=== PATIENT | female | born 1945 | race American Indian/Alaskan Native ===

== ENCOUNTER 2017-02-17 11:10 | Outpatient (CLI) | payer MEDICARE ==
--- NOTE | 2017-02-17 11:54 | XRay Report ---
Chest 2 views: History: Shortness of breath. Findings: Normal cardiomediastinal silhouette. Trachea is midline. No consolidation, pneumothorax or pleural effusion. Impression: No acute cardiopulmonary findings.
--- NOTE | 2017-02-17 14:53 | Mammography Report ---
BILATERAL MAMMOGRAM with CAD: HISTORY:Cancer screening. Comparison study is dated February 26, 2016. FINDINGS: The breasts are almost entirely fat (<25% glandular). No mass, distortion, suspicious calcification, or skin change is seen. Stable bilateral calcifications which are radiographically benign are noted. IMPRESSION: Negative mammogram. There is no mammographic evidence of malignancy. RECOMMENDATION: Follow-up per ACS guidelines. BI-RADS CATEGORY: 1 = Negative ACR BI-RADS MAMMOGRAPHIC CODES: 0 = Needs additional imaging evaluation; 1 = Negative; 2 = Benign; 3 = Probably benign; 4 = Suspicious; 5 = Malignant; 6 = Known biopsy-proven malignancy COMMENT: 1. Dense breast tissue, i.e., adenosis, fibrocystic changes, etc., may obscure an underlying neoplasm. 2. Approximately 10% of cancers are not detected with mammography. 3. A negative mammography report should not delay biopsy if a clinically suspicious mass is present. COMMENT: Patient follow-up letters are generated in [id number].
== END 2017-02-17 11:11 | disposition home or self-care (01) ==
LOC: MAMMO 11:10
PROVIDERS: ATTEND Internal Medicine
DX: Z12.31 Encounter for screening mammogram for malignant neoplasm of breast (principal); R06.02 Shortness of breath
CPT/HCPCS: 71020; G0202; 77067

== ENCOUNTER 2018-02-20 08:46 | Outpatient (CLI) | payer MEDICARE ==
--- NOTE | 2018-02-20 09:15 | Mammography Report ---
BILATERAL MAMMOGRAM: FINDINGS: The breasts are almost entirely fat (<25% glandular). No mass, distortion, suspicious calcification, or skin change is seen. No significant changes when compared to exams dating back to February 2016. CAD was utilized. IMPRESSION: Negative mammogram. There is no mammographic evidence of malignancy. RECOMMENDATION: Follow-up per ACS guidelines. BI-RADS CATEGORY: 1 = Negative ACR BI-RADS MAMMOGRAPHIC CODES: 0 = Needs additional imaging evaluation; 1 = Negative; 2 = Benign; 3 = Probably benign; 4 = Suspicious; 5 = Malignant; 6 = Known biopsy-proven malignancy COMMENT: 1. Dense breast tissue, i.e., adenosis, fibrocystic changes, etc., may obscure an underlying neoplasm. 2. Approximately 10% of cancers are not detected with mammography. 3. A negative mammography report should not delay biopsy if a clinically suspicious mass is present. COMMENT: Patient follow-up letters are generated in [employer].
== END 2018-02-20 08:47 | disposition home or self-care (01) ==
LOC: MAMMO 08:46
PROVIDERS: ATTEND Internal Medicine
DX: Z12.31 Encounter for screening mammogram for malignant neoplasm of breast (principal)
CPT/HCPCS: 77067

== ENCOUNTER 2018-02-27 09:40 | Outpatient (CLI) | payer MEDICARE ==
--- NOTE | 2018-02-27 10:53 | Ultrasound Report ---
ULTRASOUND THYROID SCAN History: Disorder of thyroid, unspecified. Technique: Grayscale ultrasound with color Doppler interrogation. Findings: The right thyroid lobe is borderline enlarged measuring 5.4 x 1.7 x 1.6 cm. No right thyroid mass or cyst. The left thyroid lobe is normal size measuring 3.5 x 2.1 x 1.8 cm. A 2.5 x 1.5 x 1.3 cm slightly heterogeneous solid nodule is identified in the mid/posterior left thyroid lobe. No calcifications or cystic change. Trace flow on color Doppler. There is also a 1.2 x 1.1 cm hypoechoic cyst containing debris at the inferior pole of the left thyroid lobe. The isthmus is mildly thickened measuring 4 mm. A 1.4 x 0.6 x 1.2 cm well-circumscribed solid nodule is noted in the left side of the isthmus. Impression: 2 thyroid nodules and 1 thyroid cyst containing debris as outlined above.
== END 2018-02-27 09:41 | disposition home or self-care (01) ==
LOC: US 09:40
PROVIDERS: ATTEND Internal Medicine Critical Care Medicine
DX: E04.2 Nontoxic multinodular goiter (principal); E04.1 Nontoxic single thyroid nodule
CPT/HCPCS: 76536

== ENCOUNTER 2018-03-22 10:22 | Outpatient (CLI) | payer MEDICARE ==
--- NOTE | 2018-03-22 11:13 | Cat Scan Report ---
CT scan of chest without IV contrast: History: Interstitial pulmonary disease. Findings: No endobronchial or mediastinal mass. No mediastinal, hilar or axillary adenopathy. Minimal left pleural thickening. No pericardial effusion. Normal lung parenchyma. No discrete nodularity consolidation or mass. Incidentally noted 2.6 cm cyst left kidney. Impression: Pleural thickening left chest. No acute lung findings. No definite radiographic evidence of interstitial lung disease.
== END 2018-03-22 10:23 | disposition home or self-care (01) ==
LOC: CT 10:22
PROVIDERS: ATTEND Internal Medicine Critical Care Medicine
DX: J92.9 Pleural plaque without asbestos (principal)
CPT/HCPCS: 71250

== ENCOUNTER 2019-02-28 08:46 | Outpatient (CLI) | payer MEDICARE ==
--- NOTE | 2019-02-28 09:49 | Mammography Report ---
BILATERAL DIGITAL SCREENING MAMMOGRAM with CAD: 02/28/19 08:46:00 CLINICAL: Routine screening. COMPARISON:02/20/18 FINDINGS: The breasts are almost entirely fatty.Bilateral benign calcifications, some of which are arterial. No mass, architectural distortion or suspicious calcifications. IMPRESSION: No mammographic evidence of malignancy. BI-RADS CATEGORY: 2 -- Benign RECOMMENDATION: Routine mammographic screening in one year. COMMENT: Patient follow-up letters are generated by our [employer] application.
== END 2019-02-28 08:47 | disposition home or self-care (01) ==
LOC: MAMMO 08:46
PROVIDERS: ATTEND Internal Medicine
DX: Z12.31 Encounter for screening mammogram for malignant neoplasm of breast (principal); I10 Essential (primary) hypertension; K21.9 Gastro-esophageal reflux disease without esophagitis
CPT/HCPCS: 77067

== ENCOUNTER 2021-08-25 13:20 | Inpatient (IN) | payer MEDICARE ==
[2021-08-25 13:49] LABS: Bacteria,Urine 1+ /HPF (Negative); Bilirubin,Urine NEG (Negative); Blood,Urine MOD (Negative); Color,Urine Yellow (Yellow); Mucus,Urine FEW /HPF; Protein,Urine <15 mg/dL mg/dL (Negative); Urobilinogen,Urine < 2.0 mg/dL (<2.0); WBC,Urine < 1.0 /HPF (0.0-6.0)
--- NOTE | 2021-08-25 13:56 | Emergency Department Report ---
ED General Adult HPI - General Chief complaint: GI Bleed Stated complaint: CONSTIPATED/BLEEDING Time Seen by Provider: 08/25/21 13:40 Source: patient Mode of arrival: Wheelchair Limitations: No Limitations - History of Present Illness Initial comments: Patient is 76 years old female with history of hypertension and GERD. Patient presented to the ER complaining of left lower quadrant pain and left hip pain and constipation for the last 4 days. Patient stated that she has similar condition twice before and she went to an emergency room and did CT scan and blood work and she was told that everything was normal except for constipation. Patient reported today that she took milk of magnesia last night and she had to do a lot of straining this morning and she noticed that she has a bright red blood on the toilet paper. Patient denied any hematemesis, melena, hematuria or hemoptysis. Patient is not on any blood thinner medicine. Patient stated that last colonoscopy was 7 years ago and she was told that it was normal. - Related Data Home Medications Medication Instructions Recorded Confirmed Last Taken Colchicine [Colcrys] 0.6 mg PO DAILY PRN 04/08/15 08/25/21 Unknown Enalapril Maleate [Vasotec] 20 mg PO BID 04/08/15 08/25/21 Unknown Cholecalciferol Vit D3 5,000 units PO 3XW 08/25/21 08/25/21 Unknown Metoprolol 25 mg PO BID 08/25/21 08/25/21 Unknown NIFEdipine 60 mg PO BID 08/25/21 08/25/21 Unknown cloNIDine 0.1 mg PO QHS 08/25/21 08/25/21 Unknown Allergies Allergy/AdvReac Type Severity Reaction Status Date / Time Sulfa (Sulfonamide AdvReac Rash Verified 08/25/21 13:26 Antibiotics) ED Review of Systems ROS: Stated complaint: CONSTIPATED/BLEEDING Other details as noted in HPI Comment: All other systems reviewed and negative Constitutional: denies: chills, fever Respiratory: denies: cough, shortness of breath, SOB with exertion, SOB at rest Cardiovascular: denies: chest pain, palpitations Gastrointestinal: abdominal pain, hematochezia. denies: nausea, vomiting, diarrhea, constipation, hematemesis, melena Musculoskeletal: denies: back pain Neurological: denies: headache, weakness, numbness, paresthesias, confusion ED Past Medical Hx - Past Medical History Hx Hypertension: Yes Hx GERD: Yes - Medications Home Medications: Home Medications Medication Instructions Recorded Confirmed Last Taken Type Colchicine [Colcrys] 0.6 mg PO DAILY PRN 04/08/15 08/25/21 Unknown History Enalapril Maleate [Vasotec] 20 mg PO BID 04/08/15 08/25/21 Unknown History Cholecalciferol Vit D3 5,000 units PO 3XW 08/25/21 08/25/21 Unknown History Metoprolol 25 mg PO BID 08/25/21 08/25/21 Unknown History NIFEdipine 60 mg PO BID 08/25/21 08/25/21 Unknown History cloNIDine 0.1 mg PO QHS 08/25/21 08/25/21 Unknown History ED Physical Exam - General Limitations: No Limitations General appearance: alert, in no apparent distress - Head Head exam: Present: atraumatic, normocephalic, normal inspection - Eye Eye exam: Present: normal appearance, PERRL - ENT ENT exam: Present: normal exam, normal orophraynx, mucous membranes moist - Neck Neck exam: Present: normal inspection, full ROM. Absent: tenderness, meningismus - Respiratory Respiratory exam: Present: normal lung sounds bilaterally - Cardiovascular Cardiovascular Exam: Present: regular rate, normal rhythm, normal heart sounds - GI/Abdominal GI/Abdominal exam: Present: soft, normal bowel sounds. Absent: distended, tenderness, guarding, rebound, rigid, organomegaly, mass, bruit, pulsatile mass, hernia - Extremities Exam Extremities exam: Present: normal inspection, full ROM, normal capillary refill. Absent: pedal edema, calf tenderness - Back Exam Back exam: Present: normal inspection, full ROM. Absent: CVA tenderness (R), CVA tenderness (L) - Neurological Exam Neurological exam: Present: alert, oriented X3, CN II-XII intact - Psychiatric Psychiatric exam: Present: normal mood - Skin Skin exam: Present: warm, intact, normal color ED Course Vital Signs 08/25/21 08/25/21 08/25/21 13:40 14:12 15:00 Temperature 98.3 F Pulse Rate 80 65 63 Respiratory 20 12 20 Rate Blood Pressure 171/77 155/57 O2 Sat by Pulse 99 95 94 Oximetry 08/25/21 17:00 Temperature Pulse Rate 82 Respiratory 17 Rate Blood Pressure 198/77 O2 Sat by Pulse 95 Oximetry ED Medical Decision Making - Lab Data Result diagrams: 08/25/21 14:40 08/25/21 14:40 - Radiology Data Radiology results: report reviewed - Medical Decision Making Patient is 76 years old female with history of hypertension and GERD. Patient presented to the ER complaining of left lower quadrant pain and left hip pain and constipation for the last 4 days. Patient stated that she has similar condition twice before and she went to an emergency room and did CT scan and blood work and she was told that everything was normal except for constipation. Patient reported today that she took milk of magnesia last night and she had to do a lot of straining this morning and she noticed that she has a bright red blood on the toilet paper. Patient denied any hematemesis, melena, hematuria or hemoptysis. Patient is not on any blood thinner medicine. Patient stated that last colonoscopy was 7 years ago and she was told that it was normal. Labs reviewed and showed leukocytosis of 21,000. Patient given Zosyn. CT abdomen and pelvis with IV contrast showed nonspecific thickening of the anorectal area. Given patient presentation and leukocytosis is most likely infection. I discussed the patient with Dr. Lim, he agreed to admit the patient to the hospital for further management. Critical care attestation.: If time is entered above; I have spent that time in minutes in the direct care of this critically ill patient, excluding procedure time. ED Disposition Clinical Impression: Acute abdominal pain, Rectal abnormality Disposition: 02 [facility]ORT TERM [facility]OSPITAL Is pt being admited?: Yes Condition: Stable Forms: Accompanied Note
[2021-08-25] MEDS ORDERED: SODIUM CHLORIDE 0.9% 1000 ML 1,000 ML IV ONE (13:57)
[2021-08-25 15:05] LABS: Hematocrit 44.1 % (30.3-42.9); Hemoglobin 14.1 gm/dl (10.1-14.3); Mean Corpuscular HGB Conc 32 % (30-34); Mean Corpuscular Volume 88 fl (79-97); Platelet Count 365 K/mm3 (140-440); Red Blood Count 5.02 M/mm3 (3.65-5.03); Red Cell Distribution Width 14.9 % (13.2-15.2)
[2021-08-25] MEDS ORDERED: PIPERACILLIN/TAZOBACTAM 3.375 3.375 GM/50 ML BAG IV ONE (15:08)
[2021-08-25 15:13] LABS: Albumin 4.5 g/dL (3.9-5); Calcium 9.9 mg/dL (8.4-10.2); INR 0.9 (0.87-1.13)
[2021-08-25 15:14] LABS: Partial Thromboplastin Time 32.4 Sec. (24.2-36.6)
[2021-08-25 15:45] LABS: Total Cells Counted 100
[2021-08-25 15:46] LABS: Platelet Estimate Consistent w Auto; Toxic Granulation 2+; Toxic Vacuolation 1+
--- NOTE | 2021-08-25 17:15 | Cat Scan Report ---
CT ABDOMEN AND PELVIS WITH CONTRAST INDICATION / CLINICAL INFORMATION: abdominal pain, WBC 21101. TECHNIQUE: Axial CT images were obtained through the abdomen and pelvis after 100 mL Omnipaque [address] scans at this location are performed using CT dose reduction for ALARA by means of automated exposure control. COMPARISON: CT chest 03/22/2018 FINDINGS: LOWER CHEST: Bibasilar opacities favor atelectasis. Prominent extrapleural fat at left lung base. LIVER: No significant abnormality. GALLBLADDER: Cholelithiasis BILE DUCTS: No significant abnormality. PANCREAS: No significant abnormality. SPLEEN: No significant abnormality. ADRENALS: Right adrenal gland appears normal. The left adrenal gland appears to be next to the left n ephrectomy postsurgical changes. RIGHT KIDNEY / URETER: Tiny renal hypodensities are too small to characterize but likely represent cy sts. LEFT KIDNEY / URETER: Surgically absent STOMACH / SMALL BOWEL: No significant abnormality. COLON: Diverticulosis without acute inflammation. There is nonspecific thickening at the anorectal ju nction. APPENDIX: No significant abnormality. PERITONEUM: No free fluid. No free air. No fluid collection. LYMPH NODES: No significant adenopathy. AORTA / ARTERIES: Mild atherosclerotic calcification without acute abnormality. IVC / VEINS: No significant abnormality. URINARY BLADDER: No significant abnormality. REPRODUCTIVE ORGANS: Uterus is absent. No significant adnexal abnormality. ADDITIONAL FINDINGS: Postsurgical changes of the anterior abdominal wall. SKELETAL SYSTEM: Degenerative changes of the spine. No aggressive osseous lesion. IMPRESSION: 1. Nonspecific thickening at the anorectal junction. Recommend clinical correlation. 2. Colonic diverticulosis without evidence of acute inflammation. 3. Cholelithiasis without evidence of cholecystitis. 4. Status post left nephrectomy. Signer Name: Twin Grissom MD Signed: 08/25/2021 5:10 PM Workstation Name: [id number]
[2021-08-25 18:53] LABS: Alanine Aminotransferase 16 units/L (7-56); Albumin 4.4 g/dL (3.9-5); BUN/Creatinine Ratio 16; Blood Urea Nitrogen 21 mg/dL (7-17); Calcium 9.8 mg/dL (8.4-10.2); Hemolysis Index 12
[2021-08-25 18:56] LABS: Bilirubin,Direct < 0.2 mg/dL (0-0.2)
[2021-08-25] MEDS ORDERED: ACETAMINOPHEN 325 MG TAB PO PRN (23:33)
[2021-08-25] MEDS ORDERED: HYDROmorphone 1 MG/1 ML INJ IV PRN (23:33)
[2021-08-25] MEDS ORDERED: MORPHINE 2 MG/1 ML INJ IV PRN (23:33)
[2021-08-25] MEDS ORDERED: ONDANSETRON 4 MG/2 ML INJ IV PRN (23:33)
--- NOTE | 2021-08-25 23:38 | History and Physical Report ---
History of Present Illness Date of examination: 08/25/21 Date of admission: 08/25/21 17:45 Chief complaint: Left lower quadrant pain for 1 day Bright red blood per rectum X 1 episode History of present illness: 76-year-old -French female with history of hypertension, gout and vitamin D deficiency comes in for left lower quadrant and left inguinal pain for 4 days. Bright red blood per rectum x1 this morning. Patient states she was constipated and was straining to have a bowel movement when she had a bright red blood toilet paper. No hoa bleeding afterward. No hematemesis. No melena. No hematuria. Patient is not on any anticoagulants. In the emergency room well and was sent home. Patient was told that her CAT scans were normal. Patient's last colonoscopy was 7 years ago. Which was normal. In the CAT scan and was sent home. Patient continues to have pain which is intermittent and sharp. No exacerbating or precipitating factors. Pain is localized to the left groin and left lower quadrant. - Past Medical History --Hypertension: Yes --GERD: Yes -Past surgical history --not available -Family history -- Htn - Social history --Does not smoke and no alcohol - Medications Home Medications: Home Medications Medication Instructions Recorded Confirmed Last Taken Type Colchicine [Colcrys] 0.6 mg PO DAILY PRN 04/08/15 08/25/21 Unknown History Enalapril Maleate [Vasotec] 20 mg PO BID 04/08/15 08/25/21 Unknown History Cholecalciferol Vit D3 5,000 units PO 3XW 08/25/21 08/25/21 Unknown History Metoprolol 25 mg PO BID 08/25/21 08/25/21 Unknown History NIFEdipine 60 mg PO BID 08/25/21 08/25/21 Unknown History cloNIDine 0.1 mg PO QHS 08/25/21 08/25/21 Unknown History Review of Systems ROS: Stated complaint: CONSTIPATED/BLEEDING Other details as noted in HPI Comment: All other systems reviewed and negative Constitutional: denies: chills, fever Respiratory: denies: cough, shortness of breath, SOB with exertion, SOB at rest Cardiovascular: denies: chest pain, palpitations Gastrointestinal: abdominal pain, hematochezia. denies: nausea, vomiting, diarrhea, constipation, hematemesis, melena Musculoskeletal: denies: back pain Neurological: denies: headache, weakness, numbness, paresthesias, confusion Medications and Allergies Allergies Allergy/AdvReac Type Severity Reaction Status Date / Time Sulfa (Sulfonamide AdvReac Rash Verified 08/25/21 13:26 Antibiotics) Home Medications Medication Instructions Recorded Confirmed Last Taken Type Colchicine [Colcrys] 0.6 mg PO DAILY PRN 04/08/15 08/25/21 Unknown History Enalapril Maleate [Vasotec] 20 mg PO BID 04/08/15 08/25/21 Unknown History Cholecalciferol Vit D3 5,000 units PO 3XW 08/25/21 08/25/21 Unknown History Metoprolol 25 mg PO BID 08/25/21 08/25/21 Unknown History NIFEdipine 60 mg PO BID 08/25/21 08/25/21 Unknown History cloNIDine 0.1 mg PO QHS 08/25/21 08/25/21 Unknown History Exam - Constitutional Vitals: Temp Pulse Resp BP Pulse Ox 98.1 F 66 22 144/49 91 08/25/21 19:15 08/25/21 23:00 08/25/21 23:00 08/25/21 23:00 08/25/21 23:00 General appearance: Present: no acute distress, well-nourished - EENT Eyes: Present: PERRL ENT: hearing intact, clear oral mucosa - Neck Neck: Present: supple, normal ROM - Respiratory Respiratory effort: normal Respiratory: bilateral: CTA - Cardiovascular Heart rate: 78 Rhythm: regular Heart Sounds: Present: S1 & S2. Absent: rub, click - Extremities Extremities: no ischemia, pulses intact, pulses symmetrical, No edema Peripheral Pulses: within normal limits - Abdominal General gastrointestinal: Present: soft, tender (Tender in the left groin area. No palpable hernia.), normal bowel sounds Female genitourinary: Present: normal - Integumentary Integumentary: Present: clear, warm, dry - Musculoskeletal Musculoskeletal: gait normal, strength equal bilaterally - Psychiatric Psychiatric: appropriate mood/affect, intact judgment & insight - Neurologic Neurologic: CNII-XII intact, moves all extremities HEART Score - HEART Score History: Slightly suspicious Age: > 65 Risk factors: 1-2 risk factors Troponin: < normal limit - Critical Actions Critical Actions: 0-3 pts:0.9-1.7%risk of adverse cardiac event.Candidate for discharge Results - Labs CBC & Chem 7: 08/25/21 14:40 08/25/21 18:12 Labs: Laboratory Last Values WBC 21.6 K/mm3 (4.5-11.0) H 08/25/21 14:40 RBC 5.02 M/mm3 (3.65-5.03) 08/25/21 14:40 Hgb 14.1 gm/dl (10.1-14.3) 08/25/21 14:40 Hct 44.1 % (30.3-42.9) H 08/25/21 14:40 MCV 88 fl (79-97) 08/25/21 14:40 MCH 28 pg (28-32) 08/25/21 14:40 MCHC 32 % (30-34) 08/25/21 14:40 RDW 14.9 % (13.2-15.2) 08/25/21 14:40 Plt Count 365 K/mm3 (140-440) 08/25/21 14:40 Add Manual Diff Complete 08/25/21 14:40 Total Counted 100 08/25/21 14:40 Seg Neuts % (Manual) 92.0 % (40.0-70.0) H 08/25/21 14:40 Lymphocytes % (Manual) 5.0 % (13.4-35.0) L 08/25/21 14:40 Monocytes % (Manual) 3.0 % (0.0-7.3) 08/25/21 14:40 Nucleated RBC % Not Reportable 08/25/21 14:40 Seg Neutrophils # Man 19.9 K/mm3 (1.8-7.7) H 08/25/21 14:40 Band Neutrophils # 0.0 K/mm3 08/25/21 14:40 Lymphocytes # (Manual) 1.1 K/mm3 (1.2-5.4) L 08/25/21 14:40 Abs React Lymphs (Man) 0.0 K/mm3 08/25/21 14:40 Monocytes # (Manual) 0.6 K/mm3 (0.0-0.8) 08/25/21 14:40 Eosinophils # (Manual) 0.0 K/mm3 (0.0-0.4) 08/25/21 14:40 Basophils # (Manual) 0.0 K/mm3 (0.0-0.1) 08/25/21 14:40 Metamyelocytes # 0.0 K/mm3 08/25/21 14:40 Myelocytes # 0.0 K/mm3 08/25/21 14:40 Promyelocytes # 0.0 K/mm3 08/25/21 14:40 Blast Cells # 0.0 K/mm3 08/25/21 14:40 WBC Morphology Not Reportable 08/25/21 14:40 Hypersegmented Neuts Not Reportable 08/25/21 14:40 Hyposegmented Neuts Not Reportable 08/25/21 14:40 Hypogranular Neuts Not Reportable 08/25/21 14:40 Smudge Cells Not Reportable 08/25/21 14:40 Toxic Granulation 2+ 08/25/21 14:40 Toxic Vacuolation 1+ 08/25/21 14:40 Dohle Bodies Not Reportable 08/25/21 14:40 Pelger-Huet Anomaly Not Reportable 08/25/21 14:40 Hugo Rods Not Reportable 08/25/21 14:40 Platelet Estimate Consistent w auto 08/25/21 14:40 Clumped Platelets Not Reportable 08/25/21 14:40 Plt Clumps, EDTA Not Reportable 08/25/21 14:40 Large Platelets Not Reportable 08/25/21 14:40 Giant Platelets Not Reportable 08/25/21 14:40 Platelet Satelliting Not Reportable 08/25/21 14:40 Plt Morphology Comment Not Reportable 08/25/21 14:40 RBC Morphology Not Reportable 08/25/21 14:40 Dimorphic RBCs Not Reportable 08/25/21 14:40 Polychromasia Not Reportable 08/25/21 14:40 Hypochromasia Not Reportable 08/25/21 14:40 Poikilocytosis Not Reportable 08/25/21 14:40 Anisocytosis Not Reportable 08/25/21 14:40 Microcytosis Not Reportable 08/25/21 14:40 Macrocytosis Not Reportable 08/25/21 14:40 Spherocytes Not Reportable 08/25/21 14:40 Pappenheimer Bodies Not Reportable 08/25/21 14:40 Sickle Cells Not Reportable 08/25/21 14:40 Target Cells Not Reportable 08/25/21 14:40 Tear Drop Cells Not Reportable 08/25/21 14:40 Ovalocytes Not Reportable 08/25/21 14:40 Helmet Cells Not Reportable 08/25/21 14:40 [place] Bodies Not Reportable 08/25/21 14:40 [place] Rings Not Reportable 08/25/21 14:40 Juan Cells Not Reportable 08/25/21 14:40 Bite Cells Not Reportable 08/25/21 14:40 Crenated Cell Not Reportable 08/25/21 14:40 Elliptocytes Not Reportable 08/25/21 14:40 Acanthocytes (Spur) Not Reportable 08/25/21 14:40 Rouleaux Not Reportable 08/25/21 14:40 Hemoglobin C Crystals Not Reportable 08/25/21 14:40 Schistocytes Not Reportable 08/25/21 14:40 Malaria parasites Not Reportable 08/25/21 14:40 Randy Bodies Not Reportable 08/25/21 14:40 Hem Pathologist Commnt No 08/25/21 14:40 PT 13.2 Sec. (12.2-14.9) 08/25/21 14:40 INR 0.90 (0.87-1.13) 08/25/21 14:40 APTT 32.4 Sec. (24.2-36.6) 08/25/21 14:40 Sodium 139 mmol/L (137-145) 08/25/21 18:12 Potassium 4.6 mmol/L (3.6-5.0) 08/25/21 18:12 Chloride 101.9 mmol/L (98-107) 08/25/21 18:12 Carbon Dioxide 24 mmol/L (22-30) 08/25/21 18:12 Anion Gap 18 mmol/L 08/25/21 18:12 BUN 21 mg/dL (7-17) H 08/25/21 18:12 Creatinine 1.3 mg/dL (0.6-1.2) H 08/25/21 18:12 Estimated GFR 48 ml/min 08/25/21 18:12 BUN/Creatinine Ratio 16 % 08/25/21 18:12 Glucose 107 mg/dL (65-100) H 08/25/21 18:12 Calcium 9.8 mg/dL (8.4-10.2) 08/25/21 18:12 Total Bilirubin 0.40 mg/dL (0.1-1.2) 08/25/21 18:12 Direct Bilirubin < 0.2 mg/dL (0-0.2) 08/25/21 18:12 Indirect Bilirubin 0.2 mg/dL 08/25/21 18:12 AST 18 units/L (5-40) 08/25/21 18:12 ALT 16 units/L (7-56) 08/25/21 18:12 Alkaline Phosphatase 95 units/L (35-129) 08/25/21 18:12 Total Protein 7.7 g/dL (6.3-8.2) 08/25/21 18:12 Albumin 4.4 g/dL (3.9-5) 08/25/21 18:12 Albumin/Globulin Ratio 1.3 % 08/25/21 18:12 Urine Color Yellow (Yellow) 08/25/21 Unknown Urine Turbidity Clear (Clear) 08/25/21 Unknown Urine pH 5.0 (5.0-7.0) 08/25/21 Unknown Ur Specific Elsie 1.012 (1.003-1.030) 08/25/21 Unknown Urine Protein <15 mg/dl mg/dL (Negative) 08/25/21 Unknown Urine Glucose (UA) Neg mg/dL (Negative) 08/25/21 Unknown Urine Ketones Neg mg/dL (Negative) 08/25/21 Unknown Urine Blood Mod (Negative) 08/25/21 Unknown Urine Nitrite Neg (Negative) 08/25/21 Unknown Urine Bilirubin Neg (Negative) 08/25/21 Unknown Urine Urobilinogen < 2.0 mg/dL (<2.0) 08/25/21 Unknown Ur Leukocyte Esterase Neg (Negative) 08/25/21 Unknown Urine WBC (Auto) < 1.0 /HPF (0.0-6.0) 08/25/21 Unknown Urine RBC (Auto) 1.0 /HPF (0.0-6.0) 08/25/21 Unknown U Epithel Cells (Auto) 2.0 /HPF (0-13.0) 08/25/21 Unknown Urine Bacteria (Auto) 1+ /HPF (Negative) 08/25/21 Unknown Urine Mucus Few /HPF 08/25/21 Unknown Microbiology: Microbiology 08/25/21 18:12 Peripheral/Venous Blood Culture - Preliminary Culture in Progress 08/25/21 18:12 Peripheral/Venous Blood Culture - Preliminary Culture in Progress - Imaging and Cardiology Imaging and Cardiology: CT abdomen and pelvis Nonspecific thickening of the anorectal junction Recommend clinical correlation Colonic diverticulosis without evidence of acute inflammation Cholelithiasis without evidence of cholecystitis S/p left nephrectomy Assessment and Plan Advance Directives: Yes (Full code) VTE prophylaxis?: Chemical Plan of care discussed with patient/family: Yes - Patient Problems (1) Lower GI bleed Current Visit: Yes Status: Acute Plan to address problem: Serial hemoglobin and hematocrit GI consult requested Patient had some bleeding while straining No active bleeding now Transfuse if necessary Of note patient has nonspecific thickening in the anorectal junction Will defer to GI. Regarding the anorectal junction abnormality (2) Sepsis Current Visit: Yes Status: Acute Plan to address problem: Patient has a high white count of 21,000 Focus of infection unclear Urine is negative for infection Possible diverticulitis Patient started on IV Zosyn empirically. (3) ODALYS (acute kidney injury) Current Visit: Yes Status: Acute Plan to address problem: IV fluids for now and monitor creatinine levels (4) Hypertension Current Visit: Yes Status: Chronic Qualifiers: Hypertension type: primary hypertension Qualified Code(s): I10 - Essential (primary) hypertension Plan to address problem: Continue antihypertensives and adjust medications as necessary (5) DVT prophylaxis Current Visit: Yes Status: Acute Plan to address problem: On SCDs and GI prophylaxis
[2021-08-25] MEDS ORDERED: METOPROLOL TARTRATE 25 MG TAB PO SCH (23:45)
[2021-08-26] MEDS: NIFEdipine XL 60 MG TAB PO SCH ×3 (00:35→21:24)
[2021-08-26] MEDS: SODIUM CHLORIDE 0.9% 1000 ML 1,000 ML IV SCH ×2 (00:37→13:13)
[2021-08-26] MEDS: FAMOTIDINE 20 MG/2 ML INJ IV SCH ×3 (00:50→21:15)
[2021-08-26] MEDS: PIPERACIL/TAZOBACTA 4.5/NS 100 4.5 GM/100 ML VIAL IV SCH ×3 (02:05→19:46)
[2021-08-26] MEDS: LISINOPRIL 40 MG TAB PO SCH (10:23)
[2021-08-26] MEDS: METOPROLOL TARTRATE 25 MG TAB PO SCH ×2 (10:28→19:45)
--- NOTE | 2021-08-26 10:40 | Gastroenterology Consultation ---
History of Present Illness - Reason for Consult Consult date: 08/26/21 rectal bleeding Requesting physician: ARUNA LUO - History of Present Illness This is a 76 yo female with pmh of HTN, gout, and family hx of colon cancer with father admitted overnight for rectal bleeding and SIRS. She reports having left hip pain and has been on narcotic pain medication, which caused constipation. She has underlying chronic constipation. yesterday, she was having hard stool with straining and noticed bright red blood dripping from her rectum. No BM since then. No abdominal pain, nausea/vomiting, or melena. Last colonoscopy in 2012. CT scan showed diverticulosis without diverticulitis and nonspecific thickening in the anorectal junction. Colonoscopy with Dr. monterroso in 2013 showed left sided diverticulosis, internal hemorrhoids, and melanosis coli. Recommended for 5 year follow up colonoscopy. Medication list reviewed. Medications and Allergies Allergies Allergy/AdvReac Type Severity Reaction Status Date / Time Sulfa (Sulfonamide AdvReac Rash Verified 08/25/21 13:26 Antibiotics) Home Medications Medication Instructions Recorded Confirmed Last Taken Type Colchicine [Colcrys] 0.6 mg PO DAILY PRN 04/08/15 08/26/21 08/03/21 20:50 History Enalapril Maleate [Vasotec] 20 mg PO BID 04/08/15 08/26/21 08/24/21 20:30 History Cholecalciferol Vit D3 5,000 units PO 3XW 08/25/21 08/26/21 08/24/21 08:45 History Metoprolol 25 mg PO BID 08/25/21 08/26/21 08/24/21 08:45 History NIFEdipine 60 mg PO BID 08/25/21 08/26/21 08/24/21 08:45 History cloNIDine 0.1 mg PO QHS 08/25/21 08/25/21 Unknown History Active Meds: Active Medications Acetaminophen (Acetaminophen 325 Mg Tab) 650 mg PO Q4H PRN PRN Reason: Pain MILD(1-3)/Fever >100.5/DEUTSCH Famotidine (Famotidine 20 Mg/2 Ml Inj) 20 mg IV BID KATT Last Admin: 08/26/21 10:23 Dose: 20 mg Documented by: Hydromorphone HCl (Hydromorphone 1 Mg/1 Ml Inj) 0.5 mg IV Q3H PRN PRN Reason: Pain , Severe (7-10) Sodium Chloride (Nacl 0.9% 1000 Ml) 1,000 mls @ 75 mls/hr IV DIRECT [facility] Last Admin: 08/26/21 00:37 Dose: 75 mls/hr Documented by: Piperacillin Sod/Tazobactam Sod (Zosyn/Ns 4.5gm/100ml) 4.5 gm in 100 mls @ 200 mls/hr IV Q8H [facility]; Protocol Last Admin: 08/26/21 10:28 Dose: 200 mls/hr Documented by: Lisinopril (Lisinopril 40 Mg Tab) 40 mg PO QDAY [facility] Last Admin: 08/26/21 10:23 Dose: 40 mg Documented by: Metoprolol Tartrate (Metoprolol Tartrate 25 Mg Tab) 25 mg PO BID@0800,1700 [facility] Last Admin: 08/26/21 10:28 Dose: 25 mg Documented by: Morphine Sulfate (Morphine 2 Mg/1 Ml Inj) 2 mg IV Q4H PRN PRN Reason: Pain, Moderate (4-6) Last Admin: 08/26/21 03:18 Dose: 2 mg Documented by: Nifedipine (Nifedipine Xl 60 Mg Tab) 60 mg PO BID [facility] Last Admin: 08/26/21 10:23 Dose: 60 mg Documented by: Ondansetron HCl (Ondansetron 4 Mg/2 Ml Inj) 4 mg IV Q8H PRN PRN Reason: Nausea And Vomiting Sodium Chloride (Sodium Chloride 0.9% 10 Ml Flush Syringe) 10 ml IV BID [facility] Last Admin: 08/26/21 10:24 Dose: 10 ml Documented by: Sodium Chloride (Sodium Chloride 0.9% 10 Ml Flush Syringe) 10 ml IV PRN PRN PRN Reason: LINE FLUSH Review of Systems - Review of Systems All systems: negative Constitutional: no weight loss, no weight gain, no fever, no chills Cardiovascular: no chest pain Gastrointestinal: constipation, BRBPR, no abdominal pain, no nausea, no vomiting, no melena Musculoskeletal: joint pain Neurological: no weakness Endocrine: no cold intolerance Hematologic/Lymphatic: no easy bruising Allergic/Immunologic: no wheezing Exam - Constitutional Vital Signs: Temp Pulse Resp BP Pulse Ox 97.5 F L 72 18 148/70 96 08/26/21 07:59 08/26/21 07:57 08/26/21 07:59 08/26/21 07:57 08/26/21 07:57 General appearance: no acute distress - EENT Eyes: EOM intact ENT: hearing intact - Respiratory Respiratory effort: normal - Cardiovascular Rhythm: regular Heart Sounds: Present: S1 & S2 - Gastrointestinal General gastrointestinal: Present: soft, non-tender, non-distended, other Rectal Exam: normal exam-external/orifice, normal rectal tone, stool brown - Integumentary Integumentary: Present: clear, warm - Neurologic Neurological: alert and oriented x3 - Psychiatric Psychiatric: appropriate mood/affect - Labs CBC & Chem 7: 08/25/21 14:40 08/25/21 18:12 Lab Results: Laboratory Results - last 24 hr 08/25/21 08/25/21 08/25/21 14:40 14:40 14:40 WBC 21.6 H RBC 5.02 Hgb 14.1 Hct 44.1 H MCV 88 MCH 28 MCHC 32 RDW 14.9 Plt Count 365 Add Manual Diff Complete Total Counted 100 Seg Neuts % (Manual) 92.0 H Lymphocytes % (Manual) 5.0 L Monocytes % (Manual) 3.0 Nucleated RBC % Not Reportable Seg Neutrophils # Man 19.9 H Band Neutrophils # 0.0 Lymphocytes # (Manual) 1.1 L Abs React Lymphs (Man) 0.0 Monocytes # (Manual) 0.6 Eosinophils # (Manual) 0.0 Basophils # (Manual) 0.0 Metamyelocytes # 0.0 Myelocytes # 0.0 Promyelocytes # 0.0 Blast Cells # 0.0 WBC Morphology Not Reportable Hypersegmented Neuts Not Reportable Hyposegmented Neuts Not Reportable Hypogranular Neuts Not Reportable Smudge Cells Not Reportable Toxic Granulation 2+ Toxic Vacuolation 1+ Dohle Bodies Not Reportable Pelger-Huet Anomaly Not Reportable Hugo Rods Not Reportable Platelet Estimate Consistent w auto Clumped Platelets Not Reportable Plt Clumps, EDTA Not Reportable Large Platelets Not Reportable Giant Platelets Not Reportable Platelet Satelliting Not Reportable Plt Morphology Comment Not Reportable RBC Morphology Not Reportable Dimorphic RBCs Not Reportable Polychromasia Not Reportable Hypochromasia Not Reportable Poikilocytosis Not Reportable Anisocytosis Not Reportable Microcytosis Not Reportable Macrocytosis Not Reportable Spherocytes Not Reportable Pappenheimer Bodies Not Reportable Sickle Cells Not Reportable Target Cells Not Reportable Tear Drop Cells Not Reportable Ovalocytes Not Reportable Helmet Cells Not Reportable [place] Bodies Not Reportable [place] Rings Not Reportable Juan Cells Not Reportable Bite Cells Not Reportable Crenated Cell Not Reportable Elliptocytes Not Reportable Acanthocytes (Spur) Not Reportable Rouleaux Not Reportable Hemoglobin C Crystals Not Reportable Schistocytes Not Reportable Malaria parasites Not Reportable Randy Bodies Not Reportable Hem Pathologist Commnt No PT 13.2 INR 0.90 APTT 32.4 Sodium 138 Potassium 4.4 Chloride 102.8 Carbon Dioxide 22 Anion Gap 18 BUN 23 H Creatinine 1.4 H Estimated GFR 44 BUN/Creatinine Ratio 16 Glucose 107 H Calcium 9.9 Total Bilirubin 0.30 Direct Bilirubin Indirect Bilirubin AST 17 ALT 16 Alkaline Phosphatase 100 Total Protein 7.9 Albumin 4.5 Albumin/Globulin Ratio 1.3 Urine Color Urine Turbidity Urine pH Ur Specific [place] Urine Protein Urine Glucose (UA) Urine Ketones Urine Blood Urine Nitrite Urine Bilirubin Urine Urobilinogen Ur Leukocyte Esterase Urine WBC (Auto) Urine RBC (Auto) U Epithel Cells (Auto) Urine Bacteria (Auto) Urine Mucus 08/25/21 08/25/21 18:12 Unknown WBC RBC Hgb Hct MCV MCH MCHC RDW Plt Count Add Manual Diff Total Counted Seg Neuts % (Manual) Lymphocytes % (Manual) Monocytes % (Manual) Nucleated RBC % Seg Neutrophils # Man Band Neutrophils # Lymphocytes # (Manual) Abs React Lymphs (Man) Monocytes # (Manual) Eosinophils # (Manual) Basophils # (Manual) Metamyelocytes # Myelocytes # Promyelocytes # Blast Cells # WBC Morphology Hypersegmented Neuts Hyposegmented Neuts Hypogranular Neuts Smudge Cells Toxic Granulation Toxic Vacuolation Dohle Bodies Pelger-Huet Anomaly Hugo Rods Platelet Estimate Clumped Platelets Plt Clumps, EDTA Large Platelets Giant Platelets Platelet Satelliting Plt Morphology Comment RBC Morphology Dimorphic RBCs Polychromasia Hypochromasia Poikilocytosis Anisocytosis Microcytosis Macrocytosis Spherocytes Pappenheimer Bodies Sickle Cells Target Cells Tear Drop Cells Ovalocytes Helmet Cells [place] Bodies [place] Rings Juan Cells Bite Cells Crenated Cell Elliptocytes Acanthocytes (Spur) Rouleaux Hemoglobin C Crystals Schistocytes Malaria parasites Randy Bodies Hem Pathologist Commnt PT INR APTT Sodium 139 Potassium 4.6 Chloride 101.9 Carbon Dioxide 24 Anion Gap 18 BUN 21 H Creatinine 1.3 H Estimated GFR 48 BUN/Creatinine Ratio 16 Glucose 107 H Calcium 9.8 Total Bilirubin 0.40 Direct Bilirubin < 0.2 Indirect Bilirubin 0.2 AST 18 ALT 16 Alkaline Phosphatase 95 Total Protein 7.7 Albumin 4.4 Albumin/Globulin Ratio 1.3 Urine Color Yellow Urine Turbidity Clear Urine pH 5.0 Ur Specific [place] 1.012 Urine Protein <15 mg/dl Urine Glucose (UA) Neg Urine Ketones Neg Urine Blood Mod Urine Nitrite Neg Urine Bilirubin Neg Urine Urobilinogen < 2.0 Ur Leukocyte Esterase Neg Urine WBC (Auto) < 1.0 Urine RBC (Auto) 1.0 U Epithel Cells (Auto) 2.0 Urine Bacteria (Auto) 1+ Urine Mucus Few - Imaging CT Scan: report reviewed Assessment and Plan This is a 76 yo female with pmh of HTN, gout, and family hx of colon cancer with father admitted overnight for rectal bleeding and SIRS. # Rectal bleeding # Abnormal CT - CT scan showed diverticulosis without diverticulitis and nonspecific thickening in the anorectal junction. - Colonoscopy with Dr. monterroso in 2013 showed left sided diverticulosis, internal hemorrhoids, and melanosis coli. Recommended for 5 year follow up colonoscopy. - ddx for the CT finding of rectal wall thickening including colitis, internal hemorrhoids, vs malignancy. Rec - discussed options of colonoscopy either as inpatient vs outpatient. No signs of active bleeding at this time. Patient would like to have colonoscopy done inpatient. - patient currently on empiric antibiotics for sepsis without clear source of infection. - will plan for colonoscopy tomorrow - clear liquids today and NPO MN - Golytely prep. - Patient Problems (1) Lower GI bleed Current Visit: Yes Status: Acute (2) Rectal abnormality Current Visit: Yes Status: Acute
--- NOTE | 2021-08-26 10:40 | Progress Note ---
Assessment and Plan Assessment and plan: Hospital course to date 08/26: No active bleeding on encounter noted by patient. Patient only having issues with constipation. Vitals stable this morning. Follow-up recommendations of gastroenterology. Continue IV fluids and IV Zosyn. (1) Lower GI bleed Current Visit: Yes Status: Acute Plan to address problem: Serial hemoglobin and hematocrit, not actively bleeding at this time. No prior history of bleeding Transfuse as needed hemoglobin less than 7 Patient had some bleeding while straining and wiping, suspicion for hemorrhoids. Patient has a history of constipation. She is been using hydromorphone for hip pain which could have contributed to constipation. CT abdomen and pelvis demonstrates diverticuli and nonspecific thickening in the anorectal junction GI consult requested. Will differ to GI regarding the anorectal junction abnormality (2) Sepsis Current Visit: Yes Status: Acute Plan to address problem: Patient has a high white count of 21,000 on admission Focus of infection unclear Urine is negative for infection Possible diverticulitis Patient started on IV Zosyn empirically. (3) ODALYS (acute kidney injury) Current Visit: Yes Status: Acute Plan to address problem: IV fluids for now and monitor creatinine levels, some improvement on repeat labs (4) Hypertension Current Visit: Yes Status: Chronic Qualifiers: Hypertension type: primary hypertension Qualified Code(s): I10 - Essential (primary) hypertension Plan to address problem: Continue antihypertensives and adjust medications as necessary (5) DVT prophylaxis Current Visit: Yes Status: Acute Plan to address problem: On SCDs and GI prophylaxis History Interval history: Patient has no acute complaints this morning. He states that she has not had any blood per rectum since her initial episode prior to admission. She denies any nausea, vomiting, diarrhea, dizziness, chest pain, shortness of breath. She does state that she continues to have constipation. Remainder of ROS negative except for stated above Hospitalist Physical - Physical exam Narrative exam: Physical Exam: VITAL SIGNS: Reviewed. GENERAL: The patient appears normally developed, Vital signs as documented. Elevated BMI HEAD: No signs of head trauma. EYES: Pupils are equal. Extraocular motions intact. EARS: Hearing grossly intact. MOUTH: Oropharynx is normal. NECK: No adenopathy, no JVD. CHEST: Chest with clear breath sounds bilaterally. No wheezes, rales, or rhonchi. CARDIAC: Regular rate and rhythm. S1 and S2, without murmurs, gallops, or rubs. VASCULAR: No Edema. Peripheral pulses normal and equal in all extremities. ABDOMEN: Soft, non tender and non distended. No rebound or guarding, and no masses palpated. Bowel Sounds normal. MUSCULOSKELETAL: Good range of motion of all major joints. Extremities without clubbing, cyanosis or edema. Point tenderness at left hip NEUROLOGIC EXAM: Alert although orientation could not be verified as patient withdrawn no focal sensory or strength deficits. PSYCHIATRIC: Mood normal. SKIN: detail exam as documented in skin assessment - Constitutional Vitals: Temp Pulse Resp BP Pulse Ox 97.5 F L 72 18 148/70 96 08/26/21 07:59 08/26/21 07:57 08/26/21 07:59 08/26/21 07:57 08/26/21 07:57 General appearance: Present: no acute distress, well-nourished HEART Score - HEART Score Age: > 65 Risk factors: 1-2 risk factors Troponin: < normal limit - Critical Actions Critical Actions: 0-3 pts:0.9-1.7%risk of adverse cardiac event.Candidate for discharge Results - Labs CBC & Chem 7: 08/25/21 14:40 08/25/21 18:12 Labs: Laboratory Last Values WBC 21.6 K/mm3 (4.5-11.0) H 08/25/21 14:40 RBC 5.02 M/mm3 (3.65-5.03) 08/25/21 14:40 Hgb 14.1 gm/dl (10.1-14.3) 08/25/21 14:40 Hct 44.1 % (30.3-42.9) H 08/25/21 14:40 MCV 88 fl (79-97) 08/25/21 14:40 MCH 28 pg (28-32) 08/25/21 14:40 MCHC 32 % (30-34) 08/25/21 14:40 RDW 14.9 % (13.2-15.2) 08/25/21 14:40 Plt Count 365 K/mm3 (140-440) 08/25/21 14:40 Add Manual Diff Complete 08/25/21 14:40 Total Counted 100 08/25/21 14:40 Seg Neuts % (Manual) 92.0 % (40.0-70.0) H 08/25/21 14:40 Lymphocytes % (Manual) 5.0 % (13.4-35.0) L 08/25/21 14:40 Monocytes % (Manual) 3.0 % (0.0-7.3) 08/25/21 14:40 Nucleated RBC % Not Reportable 08/25/21 14:40 Seg Neutrophils # Man 19.9 K/mm3 (1.8-7.7) H 08/25/21 14:40 Band Neutrophils # 0.0 K/mm3 08/25/21 14:40 Lymphocytes # (Manual) 1.1 K/mm3 (1.2-5.4) L 08/25/21 14:40 Abs React Lymphs (Man) 0.0 K/mm3 08/25/21 14:40 Monocytes # (Manual) 0.6 K/mm3 (0.0-0.8) 08/25/21 14:40 Eosinophils # (Manual) 0.0 K/mm3 (0.0-0.4) 08/25/21 14:40 Basophils # (Manual) 0.0 K/mm3 (0.0-0.1) 08/25/21 14:40 Metamyelocytes # 0.0 K/mm3 08/25/21 14:40 Myelocytes # 0.0 K/mm3 08/25/21 14:40 Promyelocytes # 0.0 K/mm3 08/25/21 14:40 Blast Cells # 0.0 K/mm3 08/25/21 14:40 WBC Morphology Not Reportable 08/25/21 14:40 Hypersegmented Neuts Not Reportable 08/25/21 14:40 Hyposegmented Neuts Not Reportable 08/25/21 14:40 Hypogranular Neuts Not Reportable 08/25/21 14:40 Smudge Cells Not Reportable 08/25/21 14:40 Toxic Granulation 2+ 08/25/21 14:40 Toxic Vacuolation 1+ 08/25/21 14:40 Dohle Bodies Not Reportable 08/25/21 14:40 Pelger-Huet Anomaly Not Reportable 08/25/21 14:40 Hugo Rods Not Reportable 08/25/21 14:40 Platelet Estimate Consistent w auto 08/25/21 14:40 Clumped Platelets Not Reportable 08/25/21 14:40 Plt Clumps, EDTA Not Reportable 08/25/21 14:40 Large Platelets Not Reportable 08/25/21 14:40 Giant Platelets Not Reportable 08/25/21 14:40 Platelet Satelliting Not Reportable 08/25/21 14:40 Plt Morphology Comment Not Reportable 08/25/21 14:40 RBC Morphology Not Reportable 08/25/21 14:40 Dimorphic RBCs Not Reportable 08/25/21 14:40 Polychromasia Not Reportable 08/25/21 14:40 Hypochromasia Not Reportable 08/25/21 14:40 Poikilocytosis Not Reportable 08/25/21 14:40 Anisocytosis Not Reportable 08/25/21 14:40 Microcytosis Not Reportable 08/25/21 14:40 Macrocytosis Not Reportable 08/25/21 14:40 Spherocytes Not Reportable 08/25/21 14:40 Pappenheimer Bodies Not Reportable 08/25/21 14:40 Sickle Cells Not Reportable 08/25/21 14:40 Target Cells Not Reportable 08/25/21 14:40 Tear Drop Cells Not Reportable 08/25/21 14:40 Ovalocytes Not Reportable 08/25/21 14:40 Helmet Cells Not Reportable 08/25/21 14:40 [place] Bodies Not Reportable 08/25/21 14:40 [place] Rings Not Reportable 08/25/21 14:40 Juan Cells Not Reportable 08/25/21 14:40 Bite Cells Not Reportable 08/25/21 14:40 Crenated Cell Not Reportable 08/25/21 14:40 Elliptocytes Not Reportable 08/25/21 14:40 Acanthocytes (Spur) Not Reportable 08/25/21 14:40 Rouleaux Not Reportable 08/25/21 14:40 Hemoglobin C Crystals Not Reportable 08/25/21 14:40 Schistocytes Not Reportable 08/25/21 14:40 Malaria parasites Not Reportable 08/25/21 14:40 Randy Bodies Not Reportable 08/25/21 14:40 Hem Pathologist Commnt No 08/25/21 14:40 PT 13.2 Sec. (12.2-14.9) 08/25/21 14:40 INR 0.90 (0.87-1.13) 08/25/21 14:40 APTT 32.4 Sec. (24.2-36.6) 08/25/21 14:40 Sodium 139 mmol/L (137-145) 08/25/21 18:12 Potassium 4.6 mmol/L (3.6-5.0) 08/25/21 18:12 Chloride 101.9 mmol/L (98-107) 08/25/21 18:12 Carbon Dioxide 24 mmol/L (22-30) 08/25/21 18:12 Anion Gap 18 mmol/L 08/25/21 18:12 BUN 21 mg/dL (7-17) H 08/25/21 18:12 Creatinine 1.3 mg/dL (0.6-1.2) H 08/25/21 18:12 Estimated GFR 48 ml/min 08/25/21 18:12 BUN/Creatinine Ratio 16 % 08/25/21 18:12 Glucose 107 mg/dL (65-100) H 08/25/21 18:12 Calcium 9.8 mg/dL (8.4-10.2) 08/25/21 18:12 Total Bilirubin 0.40 mg/dL (0.1-1.2) 08/25/21 18:12 Direct Bilirubin < 0.2 mg/dL (0-0.2) 08/25/21 18:12 Indirect Bilirubin 0.2 mg/dL 08/25/21 18:12 AST 18 units/L (5-40) 08/25/21 18:12 ALT 16 units/L (7-56) 08/25/21 18:12 Alkaline Phosphatase 95 units/L (35-129) 08/25/21 18:12 Total Protein 7.7 g/dL (6.3-8.2) 08/25/21 18:12 Albumin 4.4 g/dL (3.9-5) 08/25/21 18:12 Albumin/Globulin Ratio 1.3 % 08/25/21 18:12 Urine Color Yellow (Yellow) 08/25/21 Unknown Urine Turbidity Clear (Clear) 08/25/21 Unknown Urine pH 5.0 (5.0-7.0) 08/25/21 Unknown Ur Specific [place] 1.012 (1.003-1.030) 08/25/21 Unknown Urine Protein <15 mg/dl mg/dL (Negative) 08/25/21 Unknown Urine Glucose (UA) Neg mg/dL (Negative) 08/25/21 Unknown Urine Ketones Neg mg/dL (Negative) 08/25/21 Unknown Urine Blood Mod (Negative) 08/25/21 Unknown Urine Nitrite Neg (Negative) 08/25/21 Unknown Urine Bilirubin Neg (Negative) 08/25/21 Unknown Urine Urobilinogen < 2.0 mg/dL (<2.0) 08/25/21 Unknown Ur Leukocyte Esterase Neg (Negative) 08/25/21 Unknown Urine WBC (Auto) < 1.0 /HPF (0.0-6.0) 08/25/21 Unknown Urine RBC (Auto) 1.0 /HPF (0.0-6.0) 08/25/21 Unknown U Epithel Cells (Auto) 2.0 /HPF (0-13.0) 08/25/21 Unknown Urine Bacteria (Auto) 1+ /HPF (Negative) 08/25/21 Unknown Urine Mucus Few /HPF 08/25/21 Unknown Microbiology: Microbiology 08/25/21 18:12 Peripheral/Venous Blood Culture - Preliminary Culture in Progress 08/25/21 18:12 Peripheral/Venous Blood Culture - Preliminary Culture in Progress Jaramillo/IV: Voiding Method Toilet Active Medications - Current Medications Current Medications: Generic Name Dose Route Start Last Admin Trade Name Freq PRN Reason Stop Dose Admin Acetaminophen 650 mg 08/25/21 23:33 Acetaminophen 325 Mg Tab PO Q4H PRN Pain MILD(1-3)/Fever >100.5/DEUTSCH Famotidine 20 mg 08/25/21 23:45 08/26/21 10:23 Famotidine 20 Mg/2 Ml Inj IV 20 mg BID KATT Administration Hydromorphone HCl 0.5 mg 08/25/21 23:33 Hydromorphone 1 Mg/1 Ml Inj IV Q3H PRN Pain , Severe (7-10) Sodium Chloride 1,000 mls @ 75 mls/hr 08/25/21 23:45 08/26/21 00:37 Nacl 0.9% 1000 Ml IV 75 mls/hr DIRECT KATT Administration Piperacillin Sod/Tazobactam Sod 4.5 gm in 100 mls @ 200 mls/hr 08/26/21 00:00 08/26/21 10:28 Zosyn/Ns 4.5gm/100ml IV 200 mls/hr Q8H KATT Administration Protocol Lisinopril 40 mg 08/26/21 10:00 08/26/21 10:23 Lisinopril 40 Mg Tab PO 40 mg QDAY KATT Administration Metoprolol Tartrate 25 mg 08/26/21 08:00 08/26/21 10:28 Metoprolol Tartrate 25 Mg Tab PO 25 mg BID@0800,1700 KATT Administration Morphine Sulfate 2 mg 08/25/21 23:33 08/26/21 03:18 Morphine 2 Mg/1 Ml Inj IV 2 mg Q4H PRN Administration Pain, Moderate (4-6) Nifedipine 60 mg 08/25/21 23:45 08/26/21 10:23 Nifedipine Xl 60 Mg Tab PO 60 mg BID KATT Administration Ondansetron HCl 4 mg 08/25/21 23:33 Ondansetron 4 Mg/2 Ml Inj IV Q8H PRN Nausea And Vomiting Sodium Chloride 10 ml 08/25/21 23:45 08/26/21 10:24 Sodium Chloride 0.9% 10 Ml Flush Syringe IV 10 ml BID KATT Administration Sodium Chloride 10 ml 08/25/21 23:33 Sodium Chloride 0.9% 10 Ml Flush Syringe IV PRN PRN LINE FLUSH
--- NOTE | 2021-08-26 10:50 | Consultation ---
History of Present Illness Consult date: 08/26/21 Reason for consult: abdominal pain - History of present illness History of present illness: 76 yo female c/o pain of her left hip bone at the anterior superior iliac spine. No nausea or vomiting. Past History Past Medical History: hypertension Medications and Allergies Allergies Allergy/AdvReac Type Severity Reaction Status Date / Time Sulfa (Sulfonamide AdvReac Rash Verified 08/25/21 13:26 Antibiotics) Home Medications Medication Instructions Recorded Confirmed Last Taken Type Colchicine [Colcrys] 0.6 mg PO DAILY PRN 04/08/15 08/26/21 08/03/21 20:50 History Enalapril Maleate [Vasotec] 20 mg PO BID 04/08/15 08/26/21 08/24/21 20:30 History Cholecalciferol Vit D3 5,000 units PO 3XW 08/25/21 08/26/21 08/24/21 08:45 History Metoprolol 25 mg PO BID 08/25/21 08/26/21 08/24/21 08:45 History NIFEdipine 60 mg PO BID 08/25/21 08/26/21 08/24/21 08:45 History cloNIDine 0.1 mg PO QHS 08/25/21 08/25/21 Unknown History Active Meds: Active Medications Acetaminophen (Acetaminophen 325 Mg Tab) 650 mg PO Q4H PRN PRN Reason: Pain MILD(1-3)/Fever >100.5/DEUTSCH Famotidine (Famotidine 20 Mg/2 Ml Inj) 20 mg IV BID KATT Last Admin: 08/26/21 10:23 Dose: 20 mg Documented by: Hydromorphone HCl (Hydromorphone 1 Mg/1 Ml Inj) 0.5 mg IV Q3H PRN PRN Reason: Pain , Severe (7-10) Sodium Chloride (Nacl 0.9% 1000 Ml) 1,000 mls @ 75 mls/hr IV DIRECT KATT Last Admin: 08/26/21 00:37 Dose: 75 mls/hr Documented by: Piperacillin Sod/Tazobactam Sod (Zosyn/Ns 4.5gm/100ml) 4.5 gm in 100 mls @ 200 mls/hr IV Q8H KATT; Protocol Last Admin: 08/26/21 10:28 Dose: 200 mls/hr Documented by: Lisinopril (Lisinopril 40 Mg Tab) 40 mg PO QDAY [facility] Last Admin: 08/26/21 10:23 Dose: 40 mg Documented by: Metoprolol Tartrate (Metoprolol Tartrate 25 Mg Tab) 25 mg PO BID@0800,1700 [facility] Last Admin: 08/26/21 10:28 Dose: 25 mg Documented by: Morphine Sulfate (Morphine 2 Mg/1 Ml Inj) 2 mg IV Q4H PRN PRN Reason: Pain, Moderate (4-6) Last Admin: 08/26/21 03:18 Dose: 2 mg Documented by: Nifedipine (Nifedipine Xl 60 Mg Tab) 60 mg PO BID [facility] Last Admin: 08/26/21 10:23 Dose: 60 mg Documented by: Ondansetron HCl (Ondansetron 4 Mg/2 Ml Inj) 4 mg IV Q8H PRN PRN Reason: Nausea And Vomiting Polyethylene Glycol/Electrolytes (Polyethylene Glycol/Elect Soln 4000 Ml) 4,000 ml PO ONCE ONE Stop: 08/26/21 11:31 Sodium Chloride (Sodium Chloride 0.9% 10 Ml Flush Syringe) 10 ml IV BID [facility] Last Admin: 08/26/21 10:24 Dose: 10 ml Documented by: Sodium Chloride (Sodium Chloride 0.9% 10 Ml Flush Syringe) 10 ml IV PRN PRN PRN Reason: LINE FLUSH Review of Systems All systems: negative (none) Exam Vital Signs Temp Pulse Resp BP Pulse Ox 98.3 F 80 20 171/77 99 08/25/21 13:40 08/25/21 13:40 08/25/21 13:40 08/25/21 13:40 08/25/21 13:40 - General physical appearance Positive: well developed, well nourished, no distress - Eyes Positive: PERRL, normal occular movement - ENT Positive: normal pinna, normal nares, normal mucosa, no hearing loss, no congestion - Neck Positive: no masses, no bruits, trachea midline, no venous distension - Respiratory Positive: normal expansion, normal respiratory effort, clear to auscultation - Cardiovascular Rhythm: regular Heart Sounds: Present: S1 & S2. Absent: rub, click - Extremities Extremities: no ischemia, pulses symmetrical, No edema - Breasts Breasts: normal, no mass, no skin changes - Abdomen Abdomen: Present: soft, bowel sounds normal, other (No ventral or groin hernias. Pt is TTP at the anterior superior iliac spine.). Absent: tender, distended Hernia: none - Genitourinary Male Genitourinary: normal Female Genitourinary: normal - Integumentary no rash, no growths, no abnormal pigmentation - Neurologic Neurologic: alert and oriented to time, place and person, motor strength and sensation are grossly intact - Musculoskeletal normal gait, normal posture - Psychiatric Psychiatric: appropriate mood/affect, intact judgment & insight Results - Labs 08/25/21 14:40 08/25/21 18:12 Abnormal lab results 08/25/21 08/25/21 08/25/21 Range/Units 14:40 14:40 18:12 WBC 21.6 H (4.5-11.0) K/mm3 Hct 44.1 H (30.3-42.9) % Seg Neuts % (Manual) 92.0 H (40.0-70.0) % Lymphocytes % (Manual) 5.0 L (13.4-35.0) % Seg Neutrophils # Man 19.9 H (1.8-7.7) K/mm3 Lymphocytes # (Manual) 1.1 L (1.2-5.4) K/mm3 BUN 23 H 21 H (7-17) mg/dL Creatinine 1.4 H 1.3 H (0.6-1.2) mg/dL Glucose 107 H 107 H (65-100) mg/dL Diabetes panel 08/25/21 08/25/21 Range/Units 14:40 18:12 Sodium 138 139 (137-145) mmol/L Potassium 4.4 4.6 (3.6-5.0) mmol/L Chloride 102.8 101.9 (98-107) mmol/L Carbon Dioxide 22 24 (22-30) mmol/L BUN 23 H 21 H (7-17) mg/dL Creatinine 1.4 H 1.3 H (0.6-1.2) mg/dL Glucose 107 H 107 H (65-100) mg/dL Calcium 9.9 9.8 (8.4-10.2) mg/dL AST 17 18 (5-40) units/L ALT 16 16 (7-56) units/L Alkaline Phosphatase 100 95 (35-129) units/L Total Protein 7.9 7.7 (6.3-8.2) g/dL Albumin 4.5 4.4 (3.9-5) g/dL Calcium panel 08/25/21 08/25/21 Range/Units 14:40 18:12 Calcium 9.9 9.8 (8.4-10.2) mg/dL Albumin 4.5 4.4 (3.9-5) g/dL Pituitary panel 08/25/21 08/25/21 Range/Units 14:40 18:12 Sodium 138 139 (137-145) mmol/L Potassium 4.4 4.6 (3.6-5.0) mmol/L Chloride 102.8 101.9 (98-107) mmol/L Carbon Dioxide 22 24 (22-30) mmol/L BUN 23 H 21 H (7-17) mg/dL Creatinine 1.4 H 1.3 H (0.6-1.2) mg/dL Glucose 107 H 107 H (65-100) mg/dL Calcium 9.9 9.8 (8.4-10.2) mg/dL Adrenal panel 08/25/21 08/25/21 Range/Units 14:40 18:12 Sodium 138 139 (137-145) mmol/L Potassium 4.4 4.6 (3.6-5.0) mmol/L Chloride 102.8 101.9 (98-107) mmol/L Carbon Dioxide 22 24 (22-30) mmol/L BUN 23 H 21 H (7-17) mg/dL Creatinine 1.4 H 1.3 H (0.6-1.2) mg/dL Glucose 107 H 107 H (65-100) mg/dL Calcium 9.9 9.8 (8.4-10.2) mg/dL Total Bilirubin 0.30 0.40 (0.1-1.2) mg/dL AST 17 18 (5-40) units/L ALT 16 16 (7-56) units/L Alkaline Phosphatase 100 95 (35-129) units/L Total Protein 7.9 7.7 (6.3-8.2) g/dL Albumin 4.5 4.4 (3.9-5) g/dL - Imaging CT scan - abdomen: report reviewed CT scan - pelvis: report reviewed Assessment and Plan - Patient Problems (1) Left lower quadrant pain Current Visit: Yes Status: Acute Plan to address problem: 1) Pt does not have a hernia or any other significant surgical abnormality. 2) I will sign off.
[2021-08-26] MEDS ORDERED: POLYETHYLENE GLYCOL/ELECT SOLN 4000 ML PO ONE (11:30)
[2021-08-27] MEDS: SODIUM CHLORIDE 0.9% 1000 ML 1,000 ML IV SCH (00:01)
[2021-08-27] MEDS: PIPERACIL/TAZOBACTA 4.5/NS 100 4.5 GM/100 ML VIAL IV SCH ×3 (00:01→16:41)
[2021-08-27] MEDS ORDERED: LIDOCAINE MPF (2%) 20 MG/1 ML VIAL 5 ML ONE ×2 (07:00→13:30)
[2021-08-27] MEDS ORDERED: hydrALAZINE 20 MG/1 ML INJ ONE (07:00)
[2021-08-27] MEDS ORDERED: hydrALAZINE 20 MG/1 ML INJ IV PRN (09:37)
[2021-08-27] MEDS: LISINOPRIL 40 MG TAB PO SCH (09:51)
[2021-08-27] MEDS: FAMOTIDINE 20 MG/2 ML INJ IV SCH ×2 (09:51→21:43)
[2021-08-27] MEDS: METOPROLOL TARTRATE 25 MG TAB PO SCH ×2 (09:51→16:40)
[2021-08-27] MEDS: NIFEdipine XL 60 MG TAB PO SCH ×2 (09:51→21:43)
[2021-08-27 09:59] LABS: Hematocrit 41.6 % (30.3-42.9); Mean Corpuscular HGB Conc 31 % (30-34); Mean Corpuscular Volume 89 fl (79-97); Platelet Count 328 K/mm3 (140-440); Red Blood Count 4.69 M/mm3 (3.65-5.03); Red Cell Distribution Width 15.1 % (13.2-15.2)
--- NOTE | 2021-08-27 10:40 | Progress Note ---
Assessment and Plan Assessment and plan: Hospital course to date 08/26: No active bleeding on encounter noted by patient. Patient only having issues with constipation. Vitals stable this morning. Follow-up recommendations of gastroenterology. Continue IV fluids and IV Zosyn. 08/27: Patient will go for colonoscopy today with GI. (1) Lower GI bleed Current Visit: Yes Status: Acute Plan to address problem: Serial hemoglobin and hematocrit, not actively bleeding at this time. No prior history of bleeding Transfuse as needed hemoglobin less than 7 Patient had some bleeding while straining and wiping, suspicion for hemorrhoids. Patient has a history of constipation. She is been using hydromorphone for hip pain which could have contributed to constipation. CT abdomen and pelvis demonstrates diverticuli and nonspecific thickening in the anorectal junction GI consult requested. Will differ to GI regarding the anorectal junction abnormality (2) Sepsis Current Visit: Yes Status: Acute Plan to address problem: Patient has a high white count of 21,000 on admission Focus of infection unclear Urine is negative for infection Possible diverticulitis Patient started on IV Zosyn empirically. (3) ODALYS (acute kidney injury) Current Visit: Yes Status: Acute Plan to address problem: IV fluids for now and monitor creatinine levels, some improvement on repeat labs (4) Hypertension Current Visit: Yes Status: Chronic Qualifiers: Hypertension type: primary hypertension Qualified Code(s): I10 - Essential (primary) hypertension Plan to address problem: Continue antihypertensives and adjust medications as necessary (5) DVT prophylaxis Current Visit: Yes Status: Acute Plan to address problem: On SCDs and GI prophylaxis History Interval history: Patient has no acute complaints this morning. Hospitalist Physical - Physical exam Narrative exam: Physical Exam: VITAL SIGNS: Reviewed. GENERAL: The patient appears normally developed, Vital signs as documented. Elevated BMI HEAD: No signs of head trauma. EYES: Pupils are equal. Extraocular motions intact. EARS: Hearing grossly intact. MOUTH: Oropharynx is normal. NECK: No adenopathy, no JVD. CHEST: Chest with clear breath sounds bilaterally. No wheezes, rales, or rhonchi. CARDIAC: Regular rate and rhythm. S1 and S2, without murmurs, gallops, or rubs. VASCULAR: No Edema. Peripheral pulses normal and equal in all extremities. ABDOMEN: Soft, non tender and non distended. No rebound or guarding, and no masses palpated. Bowel Sounds normal. MUSCULOSKELETAL: Good range of motion of all major joints. Extremities without clubbing, cyanosis or edema. Point tenderness at left hip NEUROLOGIC EXAM: Alert although orientation could not be verified as patient withdrawn no focal sensory or strength deficits. PSYCHIATRIC: Mood normal. SKIN: detail exam as documented in skin assessment - Constitutional Vitals: Temp Pulse Resp BP Pulse Ox 97.6 F 70 18 178/67 96 08/27/21 07:35 08/27/21 09:51 08/27/21 07:35 08/27/21 09:51 08/27/21 09:00 General appearance: Present: no acute distress, well-nourished HEART Score - HEART Score Age: > 65 Risk factors: 1-2 risk factors Troponin: < normal limit - Critical Actions Critical Actions: 0-3 pts:0.9-1.7%risk of adverse cardiac event.Candidate for discharge Results - Labs CBC & Chem 7: 08/27/21 08:54 08/25/21 18:12 Labs: Laboratory Last Values WBC 11.3 K/mm3 (4.5-11.0) H 08/27/21 08:54 RBC 4.69 M/mm3 (3.65-5.03) 08/27/21 08:54 Hgb 13.0 gm/dl (10.1-14.3) 08/27/21 08:54 Hct 41.6 % (30.3-42.9) 08/27/21 08:54 MCV 89 fl (79-97) 08/27/21 08:54 MCH 28 pg (28-32) 08/27/21 08:54 MCHC 31 % (30-34) 08/27/21 08:54 RDW 15.1 % (13.2-15.2) 08/27/21 08:54 Plt Count 328 K/mm3 (140-440) 08/27/21 08:54 Add Manual Diff Complete 08/25/21 14:40 Total Counted 100 08/25/21 14:40 Seg Neuts % (Manual) 92.0 % (40.0-70.0) H 08/25/21 14:40 Lymphocytes % (Manual) 5.0 % (13.4-35.0) L 08/25/21 14:40 Monocytes % (Manual) 3.0 % (0.0-7.3) 08/25/21 14:40 Nucleated RBC % Not Reportable 08/25/21 14:40 Seg Neutrophils # Man 19.9 K/mm3 (1.8-7.7) H 08/25/21 14:40 Band Neutrophils # 0.0 K/mm3 08/25/21 14:40 Lymphocytes # (Manual) 1.1 K/mm3 (1.2-5.4) L 08/25/21 14:40 Abs React Lymphs (Man) 0.0 K/mm3 08/25/21 14:40 Monocytes # (Manual) 0.6 K/mm3 (0.0-0.8) 08/25/21 14:40 Eosinophils # (Manual) 0.0 K/mm3 (0.0-0.4) 08/25/21 14:40 Basophils # (Manual) 0.0 K/mm3 (0.0-0.1) 08/25/21 14:40 Metamyelocytes # 0.0 K/mm3 08/25/21 14:40 Myelocytes # 0.0 K/mm3 08/25/21 14:40 Promyelocytes # 0.0 K/mm3 08/25/21 14:40 Blast Cells # 0.0 K/mm3 08/25/21 14:40 WBC Morphology Not Reportable 08/25/21 14:40 Hypersegmented Neuts Not Reportable 08/25/21 14:40 Hyposegmented Neuts Not Reportable 08/25/21 14:40 Hypogranular Neuts Not Reportable 08/25/21 14:40 Smudge Cells Not Reportable 08/25/21 14:40 Toxic Granulation 2+ 08/25/21 14:40 Toxic Vacuolation 1+ 08/25/21 14:40 Dohle Bodies Not Reportable 08/25/21 14:40 Pelger-Huet Anomaly Not Reportable 08/25/21 14:40 Hugo Rods Not Reportable 08/25/21 14:40 Platelet Estimate Consistent w auto 08/25/21 14:40 Clumped Platelets Not Reportable 08/25/21 14:40 Plt Clumps, EDTA Not Reportable 08/25/21 14:40 Large Platelets Not Reportable 08/25/21 14:40 Giant Platelets Not Reportable 08/25/21 14:40 Platelet Satelliting Not Reportable 08/25/21 14:40 Plt Morphology Comment Not Reportable 08/25/21 14:40 RBC Morphology Not Reportable 08/25/21 14:40 Dimorphic RBCs Not Reportable 08/25/21 14:40 Polychromasia Not Reportable 08/25/21 14:40 Hypochromasia Not Reportable 08/25/21 14:40 Poikilocytosis Not Reportable 08/25/21 14:40 Anisocytosis Not Reportable 08/25/21 14:40 Microcytosis Not Reportable 08/25/21 14:40 Macrocytosis Not Reportable 08/25/21 14:40 Spherocytes Not Reportable 08/25/21 14:40 Pappenheimer Bodies Not Reportable 08/25/21 14:40 Sickle Cells Not Reportable 08/25/21 14:40 Target Cells Not Reportable 08/25/21 14:40 Tear Drop Cells Not Reportable 08/25/21 14:40 Ovalocytes Not Reportable 08/25/21 14:40 Helmet Cells Not Reportable 08/25/21 14:40 [place] Bodies Not Reportable 08/25/21 14:40 [place] Rings Not Reportable 08/25/21 14:40 Juan Cells Not Reportable 08/25/21 14:40 Bite Cells Not Reportable 08/25/21 14:40 Crenated Cell Not Reportable 08/25/21 14:40 Elliptocytes Not Reportable 08/25/21 14:40 Acanthocytes (Spur) Not Reportable 08/25/21 14:40 Rouleaux Not Reportable 08/25/21 14:40 Hemoglobin C Crystals Not Reportable 08/25/21 14:40 Schistocytes Not Reportable 08/25/21 14:40 Malaria parasites Not Reportable 08/25/21 14:40 Randy Bodies Not Reportable 08/25/21 14:40 Hem Pathologist Commnt No 08/25/21 14:40 PT 13.2 Sec. (12.2-14.9) 08/25/21 14:40 INR 0.90 (0.87-1.13) 08/25/21 14:40 APTT 32.4 Sec. (24.2-36.6) 08/25/21 14:40 Sodium 139 mmol/L (137-145) 08/25/21 18:12 Potassium 4.6 mmol/L (3.6-5.0) 08/25/21 18:12 Chloride 101.9 mmol/L (98-107) 08/25/21 18:12 Carbon Dioxide 24 mmol/L (22-30) 08/25/21 18:12 Anion Gap 18 mmol/L 08/25/21 18:12 BUN 21 mg/dL (7-17) H 08/25/21 18:12 Creatinine 1.3 mg/dL (0.6-1.2) H 08/25/21 18:12 Estimated GFR 48 ml/min 08/25/21 18:12 BUN/Creatinine Ratio 16 % 08/25/21 18:12 Glucose 107 mg/dL (65-100) H 08/25/21 18:12 Calcium 9.8 mg/dL (8.4-10.2) 08/25/21 18:12 Total Bilirubin 0.40 mg/dL (0.1-1.2) 08/25/21 18:12 Direct Bilirubin < 0.2 mg/dL (0-0.2) 08/25/21 18:12 Indirect Bilirubin 0.2 mg/dL 08/25/21 18:12 AST 18 units/L (5-40) 08/25/21 18:12 ALT 16 units/L (7-56) 08/25/21 18:12 Alkaline Phosphatase 95 units/L (35-129) 08/25/21 18:12 Total Protein 7.7 g/dL (6.3-8.2) 08/25/21 18:12 Albumin 4.4 g/dL (3.9-5) 08/25/21 18:12 Albumin/Globulin Ratio 1.3 % 08/25/21 18:12 Urine Color Yellow (Yellow) 08/25/21 Unknown Urine Turbidity Clear (Clear) 08/25/21 Unknown Urine pH 5.0 (5.0-7.0) 08/25/21 Unknown Ur Specific [place] 1.012 (1.003-1.030) 08/25/21 Unknown Urine Protein <15 mg/dl mg/dL (Negative) 08/25/21 Unknown Urine Glucose (UA) Neg mg/dL (Negative) 08/25/21 Unknown Urine Ketones Neg mg/dL (Negative) 08/25/21 Unknown Urine Blood Mod (Negative) 08/25/21 Unknown Urine Nitrite Neg (Negative) 08/25/21 Unknown Urine Bilirubin Neg (Negative) 08/25/21 Unknown Urine Urobilinogen < 2.0 mg/dL (<2.0) 08/25/21 Unknown Ur Leukocyte Esterase Neg (Negative) 08/25/21 Unknown Urine WBC (Auto) < 1.0 /HPF (0.0-6.0) 08/25/21 Unknown Urine RBC (Auto) 1.0 /HPF (0.0-6.0) 08/25/21 Unknown U Epithel Cells (Auto) 2.0 /HPF (0-13.0) 08/25/21 Unknown Urine Bacteria (Auto) 1+ /HPF (Negative) 08/25/21 Unknown Urine Mucus Few /HPF 08/25/21 Unknown Microbiology: Microbiology 08/25/21 18:12 Peripheral/Venous Blood Culture - Preliminary NO GROWTH AFTER 24 HOURS 08/25/21 18:12 Peripheral/Venous Blood Culture - Preliminary NO GROWTH AFTER 24 HOURS Jaramillo/IV: Voiding Method Toilet Active Medications - Current Medications Current Medications: Generic Name Dose Route Start Last Admin Trade Name Freq PRN Reason Stop Dose Admin Acetaminophen 650 mg 08/25/21 23:33 08/26/21 21:24 Acetaminophen 325 Mg Tab PO 650 mg Q4H PRN Administration Pain MILD(1-3)/Fever >100.5/DEUTSCH Famotidine 20 mg 08/25/21 23:45 08/27/21 09:51 Famotidine 20 Mg/2 Ml Inj IV 20 mg BID KATT Administration Hydralazine HCl 10 mg 08/27/21 09:37 08/27/21 09:51 Hydralazine 20 Mg/1 Ml Inj IV 10 mg Q4HR PRN Administration Hypertension Hydromorphone HCl 0.5 mg 08/25/21 23:33 Hydromorphone 1 Mg/1 Ml Inj IV Q3H PRN Pain , Severe (7-10) Sodium Chloride 1,000 mls @ 75 mls/hr 08/25/21 23:45 08/27/21 00:01 Nacl 0.9% 1000 Ml IV 75 mls/hr DIRECT KATT Administration Piperacillin Sod/Tazobactam Sod 4.5 gm in 100 mls @ 200 mls/hr 08/26/21 00:00 08/27/21 08:13 Zosyn/Ns 4.5gm/100ml IV 200 mls/hr Q8H KATT Administration Protocol Lisinopril 40 mg 08/26/21 10:00 08/27/21 09:51 Lisinopril 40 Mg Tab PO Not Given QDAY [facility] Metoprolol Tartrate 25 mg 08/26/21 08:00 08/27/21 09:51 Metoprolol Tartrate 25 Mg Tab PO Not Given BID@0800,1700 [facility] Morphine Sulfate 2 mg 08/25/21 23:33 08/26/21 03:18 Morphine 2 Mg/1 Ml Inj IV 2 mg Q4H PRN Administration Pain, Moderate (4-6) Nifedipine 60 mg 08/25/21 23:45 08/27/21 09:51 Nifedipine Xl 60 Mg Tab PO Not Given BID [facility] Ondansetron HCl 4 mg 08/25/21 23:33 Ondansetron 4 Mg/2 Ml Inj IV Q8H PRN Nausea And Vomiting Sodium Chloride 10 ml 08/25/21 23:45 08/27/21 09:51 Sodium Chloride 0.9% 10 Ml Flush Syringe IV 10 ml BID [facility] Administration Sodium Chloride 10 ml 08/25/21 23:33 Sodium Chloride 0.9% 10 Ml Flush Syringe IV PRN PRN LINE FLUSH
[2021-08-27] MEDS ORDERED: propofoL 200 MG/20 ML VIAL IV ONE ×2 (13:20)
--- NOTE | 2021-08-27 14:25 | Operative Report ---
Operative Report Operative Report: Colonoscopy: Date: 08/27/2021 Procedure: Colonoscopy Endoscopist: Christiano Gomez MD Pre-operative Diagnosis/Indications:rectal bleeding, abnormal CT Post-operative Diagnosis:moderate internal hemorrhoids, ascending colon polyps, diverticulosis History:See H&P Sedation:MAC Procedure Details: Indications, risks, and benefits were explained and consent was obtained. Pt was placed in the left lateral decubitus position and sedated. Video colonoscope was inserted thru the anus after digital exam, and advanced to the cecum withoutdifficulty. Scope was then gradually withdrawn with close inspection of the mucosa. Prep was fair. Findings: 1. A ~ 1.5 cm sessile polyp in the proximal ascending colon removed with hot snare polypectomy completely. Specimen retrieved. No bleeding noted at the end of the polypectomy. 2. A 3 mm sessile polyp in the proximal ascending colon removed with cold biopsy forcep completely. Specimen retrieved. 3. Scattered small diverticula in the right and left colon. 4. Moderate internal hemorrhoids with signs of recent bleeding but no active ble eding. 5. Fair colon prep. Specimens:ascending colon polyps. Complications:None; patient tolerated the procedure well. Disposition:Recover in the GI lab and transfer to the floor when all criteria met. Recommendations: 1. Follow up pathology results. 2. Monitor H/H. 3. Avoid constipation. Miralax daily. 4. Repeat colonoscopy as outpatient timing to be determined after review of the pathology results. 5. If H/H stable and no signs of bleeding, ok for discharge per GI standpoint. 6. Resume diet. Christiano Garay (Kasey Gomez MD [facility]
--- NOTE | 2021-08-27 15:26 | Post Anesthesia Evaluation ---
- Post Anesthesia Evaluation Patient Participated: Yes Airway Patent: Yes Stable Respiratory Function: Yes Nausea/Vomiting: No Temp > 96.8F: Yes Pain Manageable: Yes Adequeate Hydration: Yes Anesthesia Complications: No Block Receding Appropriately: Not Applicable Patient on Ventilator: No
[2021-08-28] MEDS: PIPERACIL/TAZOBACTA 4.5/NS 100 4.5 GM/100 ML VIAL IV SCH ×2 (00:14→07:54)
[2021-08-28 07:37] VITALS: BP 162/56
--- NOTE | 2021-08-28 07:41 | Discharge Summary ---
Providers - Providers Date of Admission: 08/25/21 17:45 Attending physician: ARUNA LOU MD 08/25/21 23:33 Consult to Physician [CONS] Routine Comment: Consulting Provider: KATELYNN PEÑA Physician Instructions: Reason For Exam: Perirectal stricture 08/25/21 23:39 Consult to Physician [CONS] Routine Comment: Consulting Provider: LV KING Physician Instructions: Reason For Exam: rule out inguinal hernia, left lower quadrant pain Primary care physician: PATEL GALVEZ Hospitalization Reason for admission: bleeding per rectum Condition: Fair Hospital course: Hospital course to date 08/26: No active bleeding on encounter noted by patient. Patient only having issues with constipation. Vitals stable this morning. Follow-up recommendations of gastroenterology. Continue IV fluids and IV Zosyn. 08/27: Patient will go for colonoscopy today with GI. 08/28: Recovering well post colonoscopy. GI snared 2 polyps and found scattered diverticuli and moderate hemorroids (Findings listed below). Plan for discharge home with prescription for daily miralax. (1) Lower GI bleed Current Visit: Yes Status: Acute Plan to address problem: Serial hemoglobin and hematocrit, not actively bleeding at this time. No prior history of bleeding Transfuse as needed hemoglobin less than 7 Patient had some bleeding while straining and wiping, suspicion for hemorrhoids. Patient has a history of constipation. She is been using hydromorphone for hip pain which could have contributed to constipation. CT abdomen and pelvis demonstrates diverticuli and nonspecific thickening in the anorectal junction GI consult requested. Will differ to GI regarding the anorectal junction abnormality Colonoscopy findings: Findings: 1. A ~ 1.5 cm sessile polyp in the proximal ascending colon removed with hot snare polypectomy completely. Specimen retrieved. No bleeding noted at the end of the polypectomy. 2. A 3 mm sessile polyp in the proximal ascending colon removed with cold biopsy forcep completely. Specimen retrieved. 3. Scattered small diverticula in the right and left colon. 4. Moderate internal hemorrhoids with signs of recent bleeding but no active bleeding. 5. Fair colon prep. (2) Sepsis Current Visit: Yes Status: Acute Plan to address problem: Patient has a high white count of 21,000 on admission Focus of infection unclear Urine is negative for infection Possible diverticulitis Patient started on IV Zosyn empirically. (3) ODALYS (acute kidney injury) Current Visit: Yes Status: Acute Plan to address problem: IV fluids for now and monitor creatinine levels, some improvement on repeat labs (4) Hypertension Current Visit: Yes Status: Chronic Qualifiers: Hypertension type: primary hypertension Qualified Code(s): I10 - Essential (primary) hypertension Plan to address problem: Continue antihypertensives and adjust medications as necessary (5) DVT prophylaxis Current Visit: Yes Status: Acute Plan to address problem: On SCDs and GI prophylaxis Disposition: 01 HOME / SELF CARE / HOMELESS Final Discharge Diagnosis (Prints w/discharge instructions): internal hemorrhoids Time spent for discharge: 35 - Discharge Diagnoses (1) Internal hemorrhoid Status: Acute (2) Lower GI bleed Status: Acute Core Measure Documentation - Palliative Care Palliative Care/ Comfort Measures: Not Applicable - Core Measures Any of the following diagnoses?: none Exam - Physical Exam Narrative exam: Physical Exam: VITAL SIGNS: Reviewed. GENERAL: The patient appears normally developed, Vital signs as documented. Elevated BMI HEAD: No signs of head trauma. EYES: Pupils are equal. Extraocular motions intact. EARS: Hearing grossly intact. MOUTH: Oropharynx is normal. NECK: No adenopathy, no JVD. CHEST: Chest with clear breath sounds bilaterally. No wheezes, rales, or rhonchi. CARDIAC: Regular rate and rhythm. S1 and S2, without murmurs, gallops, or rubs. VASCULAR: No Edema. Peripheral pulses normal and equal in all extremities. ABDOMEN: Soft, non tender and non distended. No rebound or guarding, and no masses palpated. Bowel Sounds normal. MUSCULOSKELETAL: Good range of motion of all major joints. Extremities without clubbing, cyanosis or edema. Point tenderness at left hip NEUROLOGIC EXAM: Alert although orientation could not be verified as patient withdrawn no focal sensory or strength deficits. PSYCHIATRIC: Mood normal. SKIN: detail exam as documented in skin assessment - Constitutional Vitals: Temp Pulse Resp BP Pulse Ox 97.9 F 85 20 162/56 95 08/28/21 07:35 08/28/21 07:35 08/28/21 07:35 08/28/21 07:35 08/28/21 07:35 Plan Activity: no restrictions Weight Bearing Status: Full Weight Bearing Diet: low fat, low cholesterol, low salt Follow up with: KATELYNN PEÑA MD [Staff Physician] - 7 Days PATEL GALVEZ MD [Primary Care Provider] - 3-5 Days Forms: Accompanied Note Prescriptions: Metoprolol [Lopressor TAB] 25 mg PO BID@0800,1700 30 Days #60 tablet polyethylene glycoL 3350 [Miralax 3350] 17 gm PO QDAY 30 Days #1 bottle NIFEdipine XL [Procardia Xl] 60 mg PO BID 30 Days #60 tablet Enalapril Maleate [Vasotec] 20 mg PO BID 30 Days #30 tab
[2021-08-28] MEDS: METOPROLOL TARTRATE 25 MG TAB PO SCH (07:54)
[2021-08-28] MEDS: FAMOTIDINE 20 MG/2 ML INJ IV SCH (09:24)
[2021-08-28] MEDS: NIFEdipine XL 60 MG TAB PO SCH (09:24)
[2021-08-28] MEDS: LISINOPRIL 40 MG TAB PO SCH (09:24)
== END 2021-08-28 11:49 | disposition home or self-care (01) | DRG 871 ==
LOC: ED 13:20 → 3A 17:45 → 4A 21:51
PROVIDERS: ADMIT Internal Medicine; ATTEND Internal Medicine
PROC: 0DBK8ZZ Excision of Ascending Colon, Via Natural or Artificial Opening Endoscopic (ICD-10-PCS; principal; 2021-08-27)
DX: A41.9 Sepsis, unspecified organism (principal); N17.0 Acute kidney failure with tubular necrosis; K57.91 Diverticulosis of intestine, part unspecified, without perforation or abscess with bleeding; I10 Essential (primary) hypertension; K21.9 Gastro-esophageal reflux disease without esophagitis; M10.9 Gout, unspecified; K64.8 Other hemorrhoids; K63.5 Polyp of colon; Z80.0 Family history of malignant neoplasm of digestive organs; Z88.2 Allergy status to sulfonamides
CPT/HCPCS: 36415; 74177; 80048; 80053; 80076; 81001; 85007; 85025; 85027; 85610; 85730; 87040; 88305; G0378; J0360; J1170; J2270; J2543; J2704; J7030; Q9967

== ENCOUNTER 2021-10-14 10:37 | Outpatient (CLI) | payer MEDICARE ==
--- NOTE | 2021-10-14 15:18 | Magnetic Resonance Report ---
MRI LEFT HIP WITHOUT CONTRAST INDICATION / CLINICAL INFORMATION: LEFT HIP PAIN. TECHNIQUE: Multiplanar, multisequence MR images were obtained. No contrast used. COMPARISON: None available. FINDINGS: ACETABULAR LABRUM: No significant abnormality. ARTICULAR CARTILAGE: Moderate DJD of both hip joints. LIGAMENTUM TERES: No significant abnormality. JOINT SPACE AND CAPSULE: No significant abnormality. GLUTEAL MUSCLES/TENDONS: Mild bilateral insertional tendinosis/peritendinitis. ILIOPSOAS MUSCLES/TENDON: No significant abnormality. PROXIMAL HAMSTRING TENDONS: No significant abnormality. GROIN MUSCLES/TENDONS: No significant abnormality. SOFT TISSUES: No significant abnormality. BONES: No significant bone marrow edema. No fracture. No osseous lesion. SACROILIAC JOINT(S): Mild degenerative changes. LOWER LUMBAR SPINE: Mild degenerative changes. SOFT TISSUE WITHIN PELVIS: Colonic diverticulosis. ADDITIONAL FINDINGS: None. IMPRESSION: 1. Moderate DJD of the left hip joint. 2. Mild insertional tendinosis/peritendinitis of left gluteal tendons. Report dictated by: Twin Grissom MD Report dictated on: 10/14/2021 12:34 PM I have reviewed the images, agree with this report, and edited this report as needed. Signer Name: Dexter Barros MD Signed: 10/14/2021 3:14 PM Workstation Name: [id number]
== END 2021-10-14 10:38 | disposition home or self-care (01) ==
LOC: MRI 10:37
PROVIDERS: ATTEND Internal Medicine Hematology & Oncology
DX: M16.12 Unilateral primary osteoarthritis, left hip (principal); D47.2 Monoclonal gammopathy; N28.89 Other specified disorders of kidney and ureter; M47.898 Other spondylosis, sacral and sacrococcygeal region; M47.816 Spondylosis without myelopathy or radiculopathy, lumbar region
CPT/HCPCS: 73721